=== PATIENT | female | born 1940 | race Caucasian/White ===

== ENCOUNTER → 2019-03-25 | Outpatient (CLI) | payer OTHER | LOC: CAT 09:55 | DX: Z13.6 Encounter for screening for cardiovascular disorders (principal); E78.00 Pure hypercholesterolemia, unspecified; I25.10 Atherosclerotic heart disease of native coronary artery without angina pectoris ==

== ENCOUNTER → 2019-04-25 | Outpatient (CLI) | payer OTHER ==
--- NOTE | 2019-04-25 10:05 | 2DMMODE ---
[facility] [address] [place] [address] 2 D/M-MODE ECHOCARDIOGRAM Name: ELÍAS TABARES Room #: REG [facility]#: [id number] Admission: 04/25/19 Attend Phys: Rigoberto Gallagher Discharge: Date of : 38 Report #: [id number] THIS REPORT FOR: //name// APPROVED REPORT Study performed: 04/25/2019 09:13:11 EXAM: Comprehensive 2D, Doppler, and color-flow Echocardiogram Patient Location: Out-Patient Room #: Echo lab 2 Status: routine BSA: 1.60 HR: 79 bpm BP: 128/76 mmHg Rhythm: NSR Other Information Study Quality: Good Indications Diabetes HLP 2D Dimensions RVDd: 29.44 mm IVSd: 8.42 (7-11mm) LVOT Diam: 19.91 (18-24mm) LVDd: 42.68 mm PWd: 8.89 (7-11mm) Ascending Ao: 27.67 (22-36mm) LVDs: 27.60 (25-40mm) Aortic Root: 29.74 mm IVC: 15.00 mm Volumes Left Atrial Volume (Systole) Single Plane 4CH: 25.38 mL Single Plane 2CH: 19.94 mL LA ESV Index: 17.00 mL/m2 Aortic Valve AoV Peak René.: 1.37 m/s AO Peak Gr.: 7.52 mmHg LVOT Max P.28 mmHg LVOT Max V: 0.90 m/s HAKEEM Vmax: 2.05 cm2 Mitral Valve E/A Ratio: 0.8 MV Decel. Time: 231.94 ms [facility] [address] [place] [address] 2 D/M-MODE ECHOCARDIOGRAM Name: RAYSHAWNELÍAS Crystal Room #: REG [facility]#: [id number] Admission: 04/25/19 Attend Phys: Rigoberto Gallagher Discharge: Date of : 38 Report #: [id number] MV E Max René.: 0.68 m/s MV A René.: 0.86 m/s MV PHT: 67.26 ms IVRT: 106.11 ms Pulmonary Valve PV Peak René.: 0.68 m/s PV Peak Gr.: 1.84 mmHg OR End Vmax: 1.50 m/s Pulmonary Vein P Vein S: 0.52 m/s P Vein A: 0.32 m/s P Vein D: 0.35 m/s P Vein A Dur.: 92.3 msec P Vein S/D Ratio: 1.49 Tricuspid Valve TR Peak René.: 2.44 m/s TR Peak Gr.: 23.88 mmHg PA Pressure: 29.00 mmHg Left Ventricle The left ventricle is normal size. There is normal LV segmental wall motion. There is normal left ventricular wall thickness. The left ventricular systolic function is normal. The left ventricular ejection fraction is within the normal range. LVEF is 60-65%. Grade I - abnormal relaxation pattern. Right Ventricle The right ventricle is normal size. The right ventricular systolic function is normal. Atria The left atrium size is normal. The right atrium size is normal. Aortic Valve The aortic valve is normal in structure. Aortic valve is calcified. Trace aortic regurgitation. There is no aortic valvular stenosis. Mitral Valve The mitral valve is normal in structure. Trace mitral regurgitation. No evidence of mitral valve stenosis. Tricuspid Valve The tricuspid valve is normal in structure. There is trace tricuspid regurgitation. Estimated PAP 29 mmHg. There is no pulmonary [facility] [place] [address] 2 D/M-MODE ECHOCARDIOGRAM Name: ELÍAS TABARES Room #: REG [facility]#: [id number] Admission: 04/25/19 Attend Phys: Rigoberto Gallagher Discharge: Date of : 38 Report #: [id number] hypertension. Pulmonic Valve The pulmonary valve is normal in structure. Trace pulmonic regurgitation. Great Vessels The aortic root is normal in size. IVC is normal in size and collapses >50% with inspiration. Pericardium There is no pericardial effusion. <Conclusion> The left ventricle is normal size. The left ventricle is normal size. LVEF is 60-65%. The aortic valve is normal in structure. Aortic valve is calcified. Trace aortic regurgitation. The mitral valve is normal in structure. Trace mitral regurgitation. The tricuspid valve is normal in structure. There is trace tricuspid regurgitation. Estimated PAP 29 mmHg. There is no pulmonary hypertension. The pulmonary valve is normal in structure. Trace pulmonic regurgitation. There is no pericardial effusion. <ELECTRONICALLY SIGNED> By: Rigoberto Ye MD 04/25/19 1004 1004 100 Rigoberto Ye MD /INF
== END ==
LOC: NUC 08:20
DX: R93.1 Abnormal findings on diagnostic imaging of heart and coronary circulation (principal); E78.5 Hyperlipidemia, unspecified; I10 Essential (primary) hypertension; E11.9 Type 2 diabetes mellitus without complications; Z87.891 Personal history of nicotine dependence